=== PATIENT | male | born 1950 | race Hispanic/Latino ===

== ENCOUNTER 2016-11-15 14:33 | Emergency (ER) | payer MEDICARE, OTHER ==
[2016-11-15] MEDS ORDERED: NACL 0.9% 500 ML 500 ML IV ONE (14:44)
--- NOTE | 2016-11-15 15:31 | XRay Report ---
AP CHEST: HISTORY: Sepsis AP view of the chest demonstrates a normal mediastinal and cardiac contour with clear lungs and normal bony and soft tissue structures. IMPRESSION: No acute cardiopulmonary process identified.
[2016-11-15] MEDS ORDERED: PROVENTIL IH ONE ×2 (15:41→15:47)
[2016-11-15 15:48] LABS: Basophils % (Auto) 1.2 % (0.0-1.8); Eosinophils % (Auto) 0.2 % (0.0-4.3); Hematocrit 38.5 % (35.5-45.6); Hemoglobin 12.8 gm/dl (11.8-15.2); Mean Corpuscular HGB Conc 33 % (32-34); Mean Corpuscular Hemoglobin 30 pg (28-32); Mean Corpuscular Volume 90 fl (84-94); Platelet Count 223 K/mm3 (140-440); Red Blood Count 4.28 M/mm3 (3.65-5.03); Red Cell Distribution Width 14.6 % (13.2-15.2); White Blood Count 8.7 K/mm3 (4.5-11.0)
[2016-11-15 15:57] LABS: INR 1.05 (0.87-1.13)
[2016-11-15 16:03] LABS: Alanine Aminotransferase 39 units/L (7-56); Albumin/Globulin Ratio 1.4 %; Alkaline Phosphatase 55 units/L (35-129); Anion Gap 26 mmol/L; Blood Urea Nitrogen 36 mg/dL (9-20); Calcium 9.4 mg/dL (8.4-10.2); Carbon Dioxide 21 mmol/L (22-30); Chloride 101.9 mmol/L (98-107); Glucose 109 mg/dL (75-100); Sodium 145 mmol/L (137-145); Total Protein 6.8 g/dL (6.3-8.2)
[2016-11-15] MEDS ORDERED: LASIX IV ONE (16:43)
--- NOTE | 2016-11-15 16:48 | Emergency Department Report ---
ED Altered Mental Status HPI - General Chief Complaint: Altered Mental Status Stated Complaint: AMS Time Seen by Provider: 11/15/16 16:35 Source: EMS Mode of arrival: Ambulatory Limitations: Altered Mental Status - History of Present Illness Initial Comments: Is a 66 years old male history of advanced dementia brought by EMS after he was found in someone's backyard with decrease responsiveness when the EMS get there is initial oxygen saturation is 91%. Patient was confused. He does not know where he is and where he is. The patient have a clean energy policy analyst who stated that the patient went with him for an appointment and then he walk out and he could not find him. He stated that patient was having called today and he had a prescription by his primary care physician but he wasn't able to fill it because he does not have insurance. MD Complaint: altered mental status Severity: moderate - Related Data Previous Rx's Medication Instructions Recorded Last Taken Type ALBUTEROL Inhaler [ProAir HFA 2 puff IH QID PRN #1 inhalation 11/15/16 Unknown Rx Inhaler] Levofloxacin [Levaquin TAB] 500 mg PO QDAY #7 tablet 11/15/16 Unknown Rx Allergies Allergy/AdvReac Type Severity Reaction Status Date / Time Unable to Assess Allergy Verified 11/15/16 14:43 ED Review of Systems ROS: Stated complaint: AMS Other details as noted in HPI Comment: Unobtainable due to pts medical conditions Constitutional: fever ED Past Medical Hx - Past Medical History Hx Congestive Heart Failure: Yes Hx Dementia: Yes (alzheimers) - Social History Smoking Status: Unknown if ever smoked - Medications Home Medications: Home Medications Medication Instructions Recorded Confirmed Last Taken Type ALBUTEROL Inhaler [ProAir HFA 2 puff IH QID PRN #1 inhalation 11/15/16 Unknown Rx Inhaler] Levofloxacin [Levaquin TAB] 500 mg PO QDAY #7 tablet 11/15/16 Unknown Rx ED Physical Exam - General Limitations: Altered Mental Status General appearance: alert, in distress (slightly tachypneic) - Head Head exam: Present: atraumatic, normocephalic - Neck Neck exam: Present: normal inspection - Respiratory Respiratory exam: Present: wheezes, rales, decreased breath sounds (right lower lobe). Absent: respiratory distress, rhonchi, stridor, chest wall tenderness - Cardiovascular Cardiovascular Exam: Present: tachycardia - GI/Abdominal GI/Abdominal exam: Present: soft. Absent: distended, tenderness, guarding, rebound, rigid, mass, bruit - Back Exam Back exam: Absent: tenderness, CVA tenderness (R), CVA tenderness (L), muscle spasm - Neurological Exam Neurological exam: Present: alert, CN II-XII intact. Absent: motor sensory deficit - Skin Skin exam: Present: warm, normal color ED Course Vital Signs 11/15/16 11/15/16 11/15/16 14:36 14:48 14:50 Temperature 99.9 F H Pulse Rate 97 H 85 88 Respiratory 92 H 18 22 Rate Blood Pressure 142/75 O2 Sat by Pulse 92 93 93 Oximetry 11/15/16 11/15/16 11/15/16 14:52 14:54 14:56 Temperature Pulse Rate 82 83 82 Respiratory 23 21 19 Rate Blood Pressure O2 Sat by Pulse 92 92 92 Oximetry 11/15/16 11/15/16 11/15/16 14:58 15:00 15:02 Temperature Pulse Rate 92 H 90 91 H Respiratory 15 20 22 Rate Blood Pressure 129/72 O2 Sat by Pulse 92 94 95 Oximetry 11/15/16 11/15/16 11/15/16 15:03 15:04 15:05 Temperature Pulse Rate 89 91 H 82 Respiratory 23 25 H 20 Rate Blood Pressure O2 Sat by Pulse 94 93 92 Oximetry 11/15/16 11/15/16 11/15/16 15:07 15:09 15:11 Temperature Pulse Rate 67 90 85 Respiratory 13 16 21 Rate Blood Pressure O2 Sat by Pulse 91 95 94 Oximetry 11/15/16 11/15/16 11/15/16 15:13 15:15 15:17 Temperature Pulse Rate 84 84 83 Respiratory 20 23 16 Rate Blood Pressure 129/72 129/72 129/72 O2 Sat by Pulse 94 92 92 Oximetry 11/15/16 11/15/16 11/15/16 15:19 15:31 16:00 Temperature Pulse Rate 85 80 80 Respiratory 15 19 18 Rate Blood Pressure 129/72 115/58 129/48 O2 Sat by Pulse 91 89 94 Oximetry 11/15/16 11/15/16 11/15/16 16:30 17:00 17:30 Temperature Pulse Rate 76 77 78 Respiratory 17 15 16 Rate Blood Pressure 105/52 112/56 118/60 O2 Sat by Pulse 94 94 94 Oximetry 11/15/16 11/15/16 11/15/16 17:37 17:39 17:54 Temperature Pulse Rate 80 79 Respiratory 13 16 Rate Blood Pressure 118/60 118/60 118/60 O2 Sat by Pulse 92 93 93 Oximetry 11/15/16 11/15/16 11/15/16 17:55 17:57 17:59 Temperature Pulse Rate 81 74 74 Respiratory 21 19 17 Rate Blood Pressure 118/60 118/60 118/60 O2 Sat by Pulse 97 Oximetry 11/15/16 11/15/16 11/15/16 18:00 18:01 18:03 Temperature Pulse Rate 76 78 78 Respiratory 18 18 19 Rate Blood Pressure 123/67 123/67 123/67 O2 Sat by Pulse 96 96 Oximetry 11/15/16 11/15/16 11/15/16 18:05 18:07 18:09 Temperature Pulse Rate 75 76 76 Respiratory 17 17 18 Rate Blood Pressure 123/67 123/67 123/67 O2 Sat by Pulse 94 94 94 Oximetry 11/15/16 11/15/16 11/15/16 18:11 18:13 18:15 Temperature Pulse Rate 75 76 74 Respiratory 16 18 17 Rate Blood Pressure 123/67 123/67 123/67 O2 Sat by Pulse 94 95 94 Oximetry 11/15/16 11/15/16 11/15/16 18:17 18:19 18:21 Temperature Pulse Rate 74 75 73 Respiratory 17 18 16 Rate Blood Pressure 123/67 118/60 118/60 O2 Sat by Pulse 95 95 95 Oximetry 11/15/16 11/15/16 11/15/16 18:23 18:25 18:27 Temperature Pulse Rate 75 77 74 Respiratory 16 17 16 Rate Blood Pressure 118/60 118/60 118/60 O2 Sat by Pulse 95 95 95 Oximetry 11/15/16 11/15/16 11/15/16 18:29 18:30 18:31 Temperature Pulse Rate 76 72 74 Respiratory 17 14 15 Rate Blood Pressure 118/60 112/53 112/53 O2 Sat by Pulse 95 95 95 Oximetry 11/15/16 11/15/16 11/15/16 18:33 18:35 18:37 Temperature Pulse Rate 75 75 75 Respiratory 16 16 16 Rate Blood Pressure 112/53 112/53 112/53 O2 Sat by Pulse 95 95 94 Oximetry 11/15/16 18:39 Temperature Pulse Rate 75 Respiratory 18 Rate Blood Pressure 112/53 O2 Sat by Pulse 97 Oximetry - Reevaluation(s) Reevaluation #1: 11/15/16 20:23 A suspicion multiple time in the [facility] patient only time he is alert he is oriented that he is not talking and according to his clean energy policy analyst this is his baseline. Patient received IV Levaquin and fluids and patient will be discharged back to his personal home care. - Lab Data Result diagrams: 11/15/16 15:11 11/15/16 15:11 Lab Results 11/15/16 11/15/16 11/15/16 Range/Units 15:03 15:11 15:11 WBC 8.7 (4.5-11.0) K/mm3 RBC 4.28 (3.65-5.03) M/mm3 Hgb 12.8 (11.8-15.2) gm/dl Hct 38.5 (35.5-45.6) % MCV 90 (84-94) fl MCH 30 (28-32) pg MCHC 33 (32-34) % RDW 14.6 (13.2-15.2) % Plt Count 223 (140-440) K/mm3 Lymph % (Auto) 11.8 L (13.4-35.0) % Morris % (Auto) 9.2 H (0.0-7.3) % Eos % (Auto) 0.2 (0.0-4.3) % Baso % (Auto) 1.2 (0.0-1.8) % Lymph # 1.0 L (1.2-5.4) K/mm3 Morris # 0.8 (0.0-0.8) K/mm3 Eos # 0.0 (0.0-0.4) K/mm3 Baso # 0.1 (0.0-0.1) K/mm3 Seg Neutrophils % 77.6 H (40.0-70.0) % Seg Neutrophils # 6.7 (1.8-7.7) K/mm3 PT 14.2 (12.2-14.9) Sec. INR 1.05 (0.87-1.13) VBG pH (7.320-7.420) Sodium (137-145) mmol/L Potassium (3.6-5.0) mmol/L Chloride (98-107) mmol/L Carbon Dioxide (22-30) mmol/L Anion Gap mmol/L BUN (9-20) mg/dL Creatinine (0.8-1.5) mg/dL Estimated GFR ml/min BUN/Creatinine Ratio % Glucose (75-100) mg/dL Lactic Acid (0.7-2.0) mmol/L Calcium (8.4-10.2) mg/dL Total Bilirubin (0.1-1.2) mg/dL AST (5-40) units/L ALT (7-56) units/L Alkaline Phosphatase (35-129) units/L Troponin T (0.00-0.029) ng/mL NT-Pro-B Natriuret Pep (0-900) pg/mL Total Protein (6.3-8.2) g/dL Albumin (3.9-5) g/dL Albumin/Globulin Ratio % Urine Color Yellow (Yellow) Urine Turbidity Clear (Clear) Urine pH 5.0 (5.0-7.0) Ur Specific [place] 1.028 (1.003-1.030) Urine Protein 100 mg/dl (Negative) mg/dL Urine Glucose (UA) Neg (Negative) mg/dL Urine Ketones 80 (Negative) mg/dL Urine Blood Neg (Negative) Urine Nitrite Neg (Negative) Urine Bilirubin Neg (Negative) Urine Urobilinogen 2.0 (<2.0) mg/dL Ur Leukocyte Esterase Neg (Negative) Urine WBC (Auto) 1.0 (0.0-6.0) /HPF Urine RBC (Auto) 2.0 (0.0-6.0) /HPF Urine Mucus Few /HPF 11/15/16 11/15/16 11/15/16 Range/Units 15:11 15:11 15:11 WBC (4.5-11.0) K/mm3 RBC (3.65-5.03) M/mm3 Hgb (11.8-15.2) gm/dl Hct (35.5-45.6) % MCV (84-94) fl MCH (28-32) pg MCHC (32-34) % RDW (13.2-15.2) % Plt Count (140-440) K/mm3 Lymph % (Auto) (13.4-35.0) % Morris % (Auto) (0.0-7.3) % Eos % (Auto) (0.0-4.3) % Baso % (Auto) (0.0-1.8) % Lymph # (1.2-5.4) K/mm3 Morris # (0.0-0.8) K/mm3 Eos # (0.0-0.4) K/mm3 Baso # (0.0-0.1) K/mm3 Seg Neutrophils % (40.0-70.0) % Seg Neutrophils # (1.8-7.7) K/mm3 PT (12.2-14.9) Sec. INR (0.87-1.13) VBG pH 7.407 (7.320-7.420) Sodium 145 (137-145) mmol/L Potassium 4.0 (3.6-5.0) mmol/L Chloride 101.9 (98-107) mmol/L Carbon Dioxide 21 L (22-30) mmol/L Anion Gap 26 mmol/L BUN 36 H (9-20) mg/dL Creatinine 1.2 (0.8-1.5) mg/dL Estimated GFR > 60 ml/min BUN/Creatinine Ratio 30.00 % Glucose 109 H (75-100) mg/dL Lactic Acid 1.50 (0.7-2.0) mmol/L Calcium 9.4 (8.4-10.2) mg/dL Total Bilirubin 0.50 (0.1-1.2) mg/dL AST 62 H (5-40) units/L ALT 39 (7-56) units/L Alkaline Phosphatase 55 (35-129) units/L Troponin T (0.00-0.029) ng/mL NT-Pro-B Natriuret Pep (0-900) pg/mL Total Protein 6.8 (6.3-8.2) g/dL Albumin 4.0 (3.9-5) g/dL Albumin/Globulin Ratio 1.4 % Urine Color (Yellow) Urine Turbidity (Clear) Urine pH (5.0-7.0) Ur Specific [place] (1.003-1.030) Urine Protein (Negative) mg/dL Urine Glucose (UA) (Negative) mg/dL Urine Ketones (Negative) mg/dL Urine Blood (Negative) Urine Nitrite (Negative) Urine Bilirubin (Negative) Urine Urobilinogen (<2.0) mg/dL Ur Leukocyte Esterase (Negative) Urine WBC (Auto) (0.0-6.0) /HPF Urine RBC (Auto) (0.0-6.0) /HPF Urine Mucus /HPF 11/15/16 11/15/16 11/15/16 Range/Units 17:26 17:26 17:26 WBC (4.5-11.0) K/mm3 RBC (3.65-5.03) M/mm3 Hgb (11.8-15.2) gm/dl Hct (35.5-45.6) % MCV (84-94) fl MCH (28-32) pg MCHC (32-34) % RDW (13.2-15.2) % Plt Count (140-440) K/mm3 Lymph % (Auto) (13.4-35.0) % Morris % (Auto) (0.0-7.3) % Eos % (Auto) (0.0-4.3) % Baso % (Auto) (0.0-1.8) % Lymph # (1.2-5.4) K/mm3 Morris # (0.0-0.8) K/mm3 Eos # (0.0-0.4) K/mm3 Baso # (0.0-0.1) K/mm3 Seg Neutrophils % (40.0-70.0) % Seg Neutrophils # (1.8-7.7) K/mm3 PT (12.2-14.9) Sec. INR (0.87-1.13) VBG pH (7.320-7.420) Sodium (137-145) mmol/L Potassium (3.6-5.0) mmol/L Chloride (98-107) mmol/L Carbon Dioxide (22-30) mmol/L Anion Gap mmol/L BUN (9-20) mg/dL Creatinine (0.8-1.5) mg/dL Estimated GFR ml/min BUN/Creatinine Ratio % Glucose (75-100) mg/dL Lactic Acid 1.50 (0.7-2.0) mmol/L Calcium (8.4-10.2) mg/dL Total Bilirubin (0.1-1.2) mg/dL AST (5-40) units/L ALT (7-56) units/L Alkaline Phosphatase (35-129) units/L Troponin T < 0.010 (0.00-0.029) ng/mL NT-Pro-B Natriuret Pep 179.3 (0-900) pg/mL Total Protein (6.3-8.2) g/dL Albumin (3.9-5) g/dL Albumin/Globulin Ratio % Urine Color (Yellow) Urine Turbidity (Clear) Urine pH (5.0-7.0) Ur Specific [place] (1.003-1.030) Urine Protein (Negative) mg/dL Urine Glucose (UA) (Negative) mg/dL Urine Ketones (Negative) mg/dL Urine Blood (Negative) Urine Nitrite (Negative) Urine Bilirubin (Negative) Urine Urobilinogen (<2.0) mg/dL Ur Leukocyte Esterase (Negative) Urine WBC (Auto) (0.0-6.0) /HPF Urine RBC (Auto) (0.0-6.0) /HPF Urine Mucus /HPF - EKG Data -: EKG Interpreted by Me Rate: normal - Radiology Data Radiology results: report reviewed - Medical Decision Making Patient is feeling better and is more alert, I believe this is his baseline mental status. Reviewed his chest x-ray EKG and his labs and nothing acute going on and given the fever that he had an low oxygen saturation having his bronchitis little provide patient with antibiotic and advised patient to follow up with his primary care physician is personal home care is coming to pick him up. Critical care attestation.: If time is entered above; I have spent that time in minutes in the direct care of this critically ill patient, excluding procedure time. ED Disposition Clinical Impression: Altered mental status Disposition: DC-01 TO HOME OR SELFCARE Is pt being admited?: No Condition: Stable Instructions: Altered Mental Status (ED), Acute Bronchitis (ED) Referrals: PRIMARY CARE, [Primary Care Provider] - 3-5 Days
[2016-11-15] MEDS ORDERED: LEVAQUIN 750MG/150ML 750 MG/150 ML BAG IV ONE (17:14)
[2016-11-15] MEDS ORDERED: TYLENOL PO ONE ×2 (17:14→17:28)
[2016-11-15 17:47] LABS: Bilirubin,Urine NEG (Negative); Blood,Urine NEG (Negative); Ketones,Urine 80 mg/dL (Negative); Leukocyte Esterase,Urine NEG (Negative); Mucus,Urine FEW /HPF; Nitrite,Urine NEG (Negative)
--- NOTE | 2016-11-15 18:18 | Cat Scan Report ---
FINAL REPORT EXAM: CT HEAD/BRAIN WO CON HISTORY: AMS TECHNIQUE: CT head without contrast PRIORS: None. FINDINGS: No acute intra-axial or extra-axial hemorrhage is identified. There is no evidence of midline shift or mass effect. There is generalized prominence of ventricles and sulci consistent with mild generalized atrophy. Crump-white matter differentiation is intact. No acute parenchymal abnormalities seen. There are patchy and confluent hypodensities within the supratentorial white matter. Bony calvarium is grossly intact. Visualized portions of the mastoids and paranasal sinuses are unremarkable. IMPRESSION: Chronic small vessel white matter ischemic change Mild generalized atrophy
[2016-11-16 08:03] VITALS: BP 140/77
== END 2016-11-16 09:43 | disposition home or self-care (01) ==
LOC: ED 14:33 → EDBD 14:33 → ED 11-16 09:43
DX: R41.82 Altered mental status, unspecified (principal); I50.9 Heart failure, unspecified; G30.9 Alzheimer's disease, unspecified; F02.80 Dementia in other diseases classified elsewhere, unspecified severity, without behavioral disturbance, psychotic disturbance, mood disturbance, and anxiety
CPT/HCPCS: 36415; 70450; 71010; 80053; 81001; 82140; 82805; 83880; 84484; 85025; 85610; 87040; 93005; 93010; 94640; 96365; 96375; 99285; J1940; J1956; J2930